=== PATIENT | female | born 1965 | race Caucasian/White ===

== ENCOUNTER 2019-02-09 20:55 | Emergency (ER) | payer SELFPAY ==
[2019-02-09] MEDS ORDERED: Ketorolac Tromethamine 30 MG/ML VIAL ONE (21:19)
[2019-02-09] MEDS ORDERED: Lidocaine 1% w/Epinephrine 1:100K 30 ML VIAL ONE (21:19)
[2019-02-09] MEDS ORDERED: HYDROcodone/Acetaminophen 5/325 mg Tablet ONE (21:19)
[2019-02-09] MEDS ORDERED: Lidocaine 1% 20 ML MDV ONE (21:22)
[2019-02-09] MEDS ORDERED: Ondansetron ODT 4 MG TAB ONE (21:24)
--- NOTE | 2019-02-09 21:52 | RAD ---
FEXAM: 2 views left forearm PROVIDED CLINICAL HISTORY: Pain status post injury COMPARISON: None FINDINGS: Displaced and angulated distal radial metaphyseal region fracture. Associated ulnar styloid fracture is suspected. Dorsal displacement of the distal fragment is suspected. IMPRESSION: Distal radial and ulnar fractures.
== END 2019-02-09 22:14 | disposition home or self-care (01) ==
LOC: MADERS 20:55
DX: S52.502A Unspecified fracture of the lower end of left radius, initial encounter for closed fracture (principal); S52.602A Unspecified fracture of lower end of left ulna, initial encounter for closed fracture; W18.30XA Fall on same level, unspecified, initial encounter
CPT/HCPCS: 25565; 96372; J1885; J2001; Q0162

== ENCOUNTER 2019-02-16 00:37 | Emergency (ER) | payer SELFPAY ==
[2019-02-16] MEDS ORDERED: Ketorolac Tromethamine 30 MG/ML VIAL ONE (00:58)
[2019-02-16] MEDS ORDERED: HYDROmorphone 0.5 MG/0.5 ML SYRINGE ONE (00:58)
[2019-02-16] MEDS ORDERED: HYDROcodone/Acetaminophen 10/325 mg Tablet ONE (01:52)
[2019-02-16] MEDS ORDERED: Acetaminophen 325 MG TAB ONE (01:52)
== END 2019-02-16 02:10 | disposition home or self-care (01) ==
LOC: MADERS 00:37
DX: G89.18 Other acute postprocedural pain (principal); M79.602 Pain in left arm; Z79.899 Other long term (current) drug therapy; Z79.1 Long term (current) use of non-steroidal anti-inflammatories (NSAID)
CPT/HCPCS: 96372; J1170; J1885